=== PATIENT | male | born 1985 | race Caucasian/White ===

== ENCOUNTER 2016-10-05 14:23 | Inpatient (IN) | payer BC ==
--- NOTE | ~2016-10-05 | PN ---
Unit #: [id number] #: [id number] Patient: TIFFANI LARSEN [id number] [facility] [address] [place] [address] [id number] MR#: [id number] NAME: TIFFANI LARSEN ROOM: [facility] Age: 31 Sex: M Admission Date: 10/05/2016 : 1985 Attending Physician: Rashid Lay M.D. Admitting Physician: Rashid Lay M.D. Primary Care Physician: Generic Doctor Not In System [facility] PROGRESS NOTES DATE 10/07/2016 DISCUSSION Tiffani Larsen is a 31-year-old male, seen on 10/07/2016. The patient interviewed, chart reviewed, and obtained information from the nursing staff. The patient reports that he was not able to get his Luvox, feeling anxious and nervous, but overall making progress, compliant and cooperative. The patient's vital signs, 98.1, 101, 197/92. REVIEW OF SYSTEMS Complete review of systems unremarkable. MENTAL STATUS EXAMINATION General appearance: Patient dressed casually. Attention span and concentration, fair. Oriented in place and person. Mood and affect, labile. Speech, monotone. Thought process, concrete. The patient denied any thoughts of harming self or others. Recent and remote memory, poor. Insight and judgment, poor. DIAGNOSES 1. Alcohol use disorder, severe. 2. Major depressive disorder, recurrent, severe. ASSESSMENT/PLAN Advised to continue with the current medication and therapeutic protocol, and if needed consider further adjustment of medication. Continue with the detox protocol. Dictated by... Jennifer Guevara/john TD: 10/09/2016 06:16 JOB #: [id number] Unit #: [id number] #: [id number] Patient: TIFFANI LARSEN PROGRESS NOTES Page 1 of 1 X Rashid Lay MD PROGRESS NOTE
--- NOTE | ~2016-10-05 | PA ---
Unit #: [id number] #: [id number] Patient: TIFFANI LARSEN [id number] [facility] [address] [place] [address] [id number] I MR#: [id number] NAME: TIFFANI LARSEN ROOM: 84 Age: 31 Sex: M Admission Date: 10/05/2016 : 1985 Date of Assessment: 10/06/2016 Attending Physician: Rashid Lay M.D. Admitting Physician: Rashid Lay M.D. Primary Care Physician: Generic Doctor Not In System PSYCHIATRIC ASSESSMENT INFORMANTS The patient's reliability, fair; chart reliability, good. CHIEF COMPLAINT Alcohol abuse. HISTORY OF PRESENT ILLNESS Mr. Tiffani Larsen is a 31-year-old male, presented with the above-mentioned complaint. The patient seeking detox from alcohol. The patient has a history of previous treatment in 2011 and 2007 for DUI, lives with sister. The patient reported he wanted to stop drinking and seeking treatment for detox. The patient reported limited periods of sobriety. The patient reported good family support. The patient denied any suicidal or homicidal ideation. Denied any psychotic symptom. The patient carries a diagnosis of alcohol disorder, major depressive disorder, has an outpatient provider from [place]. The patient reported using alcohol since age 22, longest period of sobriety 6 months, last period of sobriety 3 weeks ago. The patient reported history of blackout and withdrawal symptom, but no history of any HIV, hepatitis, or any IV drug use. The patient is complaining of withdrawal symptoms such as abdominal cramping, depressed mood, headache, irritability, nervousness, poor appetite, poor concentration, restlessness, sleep problem, and tremor. PAST PSYCHIATRIC HISTORY Remarkable for history of previous treatment for DUI as mentioned. FAMILY HISTORY AND SOCIAL HISTORY The patient has a good support system. No history of abuse. No legal charges. MEDICAL HISTORY Remarkable for history of hypertension. Musculoskeletal; muscle strength and tone, no atrophy or abnormal movement. Gait normal. MEDICATION HISTORY The patient is currently on Luvox 200 mg at bedtime, Lamictal 100 mg at bedtime, lisinopril 20 mg at bedtime, hydrochlorothiazide 12.5 mg at bedtime. ALLERGIES No known drug allergies. SUBSTANCE ABUSE HISTORY Unit #: [id number] #: [id number] Patient: TIFFANI LARSEN Please see above. REVIEW OF SYSTEMS HEENT: Eyes, clear. Ears, nose, mouth, and throat; clear. CARDIOVASCULAR: Unremarkable. RESPIRATORY: Unremarkable. GI: Unremarkable. : Unremarkable. SKIN: Unremarkable. LYMPH NODE: Unremarkable. NEUROLOGIC: Unremarkable. ENDOCRINE: Unremarkable. HEMATOLOGIC: Unremarkable. ALLERGIC/IMMUNOLOGIC: Unremarkable. MUSCULOSKELETAL: Muscle strength and tone, no atrophy or abnormal movement. Gait normal. MENTAL STATUS EXAMINATION CONSTITUTIONAL: Measurement of vital signs; temperature 97.7, pulse 78, respirations 22, blood pressure 189/115. Height 5 feet and weight 225 pounds. GENERAL APPEARANCE: The patient dressed casually. The patient did not show any facial deformity. MUSCULOSKELETAL: Please see above. PSYCHIATRIC EXAMINATION Description of speech; regular rate. Description of thought process, goal directed. Description of association, intact. Description of abnormal psychotic thinking; the patient denied any hallucination or delusions, but depressed mood, substance abuse. Description of the patient's judgment; concerning everyday activity, poor. Social situation, poor. Concerning psychiatric condition, poor. Complete mental status examination; oriented in time, place, and person. Recent and remote memory, fair. Attention span and concentration, fair. Language, able to name object and repeat phrases. Fund of knowledge, aware of current event and passive vocabulary intact. Mood and affect, sad and dysphoric. Insight and judgment, fair to poor. ASSETS AND LIABILITIES Assets; the patient is articulate, able to take care of his ADL. Liability; history of depression, substance abuse. ADMITTING DIAGNOSES Psychiatric: Alcohol use disorder, severe, F10.20; major depressive disorder, recurrent, severe, F33.2. Secondary diagnosis: Deferred. Medical diagnoses: Hypertension and obesity. Stressors: Psychosocial stressors. PSYCHIATRIC PLAN AND TREATMENT GOAL 1. Advised to admit the patient on the inpatient unit. Provide safe, supportive, and structured environment. 2. Ordered labs; CBC, CMP, UA, and UDS. 3. Detox protocol, detox monitoring, SP1 precaution. Unit #: [id number] #: [id number] Patient: TIFFANI LARSEN 4. Advised to resume home medication. If needed, consider further adjustment of medication. 5. The patient to attend all the programing with group therapy, individual therapy, family session, chemical dependency group. 6. Treatment goal to attain euthymic mood, gain insight into his problem, learn coping skill, complete detox. DISCHARGE PLAN Plan to stabilize the patient and consider followup in outpatient program. ESTIMATED LENGTH OF STAY 3 to 5 days. Dictated by... Jennifer Guevara/jennifer TD: 10/07/2016 00:01 JOB #: [id number] PSYCHIATRIC ASSESSMENT Page 1 of 1 X Rashid Lay MD X PSYCHIATRIC ASSESSMENT
--- NOTE | ~2016-10-05 | DS ---
Unit #: [id number] #: [id number] Patient: TIFFANI CARRASCO [id number] [facility] [address] [place] [address] [id number] MR#: [id number] NAME: TIFFANI CARRASCO ROOM: [facility] Age: 31 Sex: M Admission Date: 10/05/2016 : 1985 Discharge Date: 10/08/2016 Attending Physician: Rashid Lay M.D. Primary Care Physician: Generic Doctor Not In System DISCHARGE SUMMARY REASON FOR ADMISSION Detox. DIAGNOSTIC STUDIES LABORATORY RESULTS: Urine drug screen positive for benzodiazepine. HOSPITAL COURSE The patient was admitted to inpatient unit on 10/05/2016 and discharged on 10/08/2016. The patient was treated on the inpatient unit with expressive therapy, chemical dependency group, psychotherapy, detox protocol, and detox monitoring. The patient responded well with the above modalities of treatment. Subsequently, the patient was discharged with a plan to follow up in outpatient program. DISCHARGE MEDICATIONS None. DISCHARGE DIAGNOSES Psychiatric: 1. Alcohol use disorder, severe, F10.20. 2. Major depressive disorder, recurrent, severe, F33.2. Secondary diagnosis: Deferred. Medical diagnosis: None. Stressors: Psychosocial stressors. DISCHARGE INSTRUCTIONS The patient is to follow up in outpatient clinic as per manager social work. CONDITION ON DISCHARGE The patient was pleasant and cooperative. Denied any psychotic symptom or any suicidal ideation. PROGNOSIS Guarded. DIET AND ACTIVITY As tolerated. Dictated by... Rashid Lay M.D. Unit #: [id number] #: [id number] Patient: TIFFANI CARRASCO SZC/modl TD: 10/08/2016 23:35 JOB #: [id number] DISCHARGE SUMMARY Page 1 of 1 X Rashid Lay MD X DISCHARGE SUMMARY
--- NOTE | ~2016-10-05 | HP ---
Unit #: [id number] #: [id number] Patient: TIFFANI CARRASCO [id number] [place] [address] [id number] I MR#: [id number] NAME: TIFFANI CARRASCO ROOM: [facility] Age: 31 Sex: M Admission Date: 10/05/2016 : 1985 Attending Physician: Rashid Lay M.D. Admitting Physician: Rashid Lay M.D. Primary Care Physician: Generic Doctor Not In System HISTORY AND PHYSICAL HISTORY OF PRESENT ILLNESS The patient is a 31-year-old male admitted to [facility] on 10/05/2016 for detox from alcohol. PAST MEDICAL HISTORY Hypertension. PAST SURGICAL HISTORY 1. Cyst removal. 2. Oral surgery. SOCIAL HISTORY He is employed with [employer]. He lives with his mother. He drinks quart of alcohol per day. FAMILY MEDICAL HISTORY Noncontributory. ALLERGIES No known drug allergies. CURRENT MEDICATIONS Luvox, Lamictal, lisinopril, and HCTZ. REVIEW OF SYSTEMS CONSTITUTIONAL: No fever or chills. HEENT: Denies any sore throat, ear pain or runny nose. CARDIOVASCULAR: Denies chest pain, irregular heart rhythm or palpitations. CHEST: Denies shortness of breath or cough. No hemoptysis. GASTROINTESTINAL: Denies nausea, vomiting, diarrhea or chronic constipation. ENDOCRINE: Denies history of increased thirst or urination. No recent significant weight loss or gain. GENITOURINARY: Denies dysuria, frequency, or hematuria. SKIN: Denies any rashes. HEMATOLOGIC: Denies history of increased bleeding or bruising. MUSCULOSKELETAL: Denies any hot, swollen joints. No generalized muscle pain. NEUROLOGIC: Denies problems with vision or speech. No frequent, severe headaches. No numbness, tingling or weakness in any extremities. Denies loss of bladder or bowel control. PHYSICAL EXAMINATION Unit #: [id number] #: [id number] Patient: TIFFANI CARRASCO GENERAL: He is awake, alert, and oriented in no acute distress. VITAL SIGNS: Temperature 98.1, heart rate 101, respirations 22, blood pressure 197/92. SKIN: Warm and dry without rash or lesion. HEENT: Normocephalic. TMs not viewed. Oral and nasal passages clear. Conjunctivae clear. PERRLA. EOMs intact. NECK: Supple without lymphadenopathy or thyromegaly. HEART: Regular rate and rhythm without murmur. LUNGS: Clear. ABDOMEN: Soft, nontender. : Not done. EXTREMITIES: No evidence of cyanosis, clubbing or edema. Moves all without focal deficit. NEUROLOGICAL: Grossly within normal limits. Cranial Nerves: II: Visual ha are intact. III, IV AND : Extraocular movements are intact. Pupils are equal, round and reactive to light. V: Facial sensation is grossly normal. VII: Facial movements and expression are normal. VIII: Auditory acuity grossly intact. IX, X: Uvula is midline. Phonation is normal. XI: Patient shrugs shoulders and turns head normally. XII: Tongue protrudes in the midline. Sensory and Motor Function: Sensory and motor sensation is grossly normal. Motor: moves all extremities well. IMPRESSION 1. Psychiatric admission. 2. Alcohol abuse. 3. Hypertension. RECOMMENDATIONS PSYCHIATRIC: Per psychiatrist. MEDICAL: No contraindication to participate in this facility activities. MEDICAL PROGNOSIS Good. MEDICAL CONDITION Stable. Dictated by... Raulito Cox/cj TD: 10/06/2016 15:04 JOB #: [id number] Unit #: [id number] #: [id number] Patient: TIFFANI CARRASCO HISTORY AND PHYSICAL Page 1 of 1 X PATTI FLORES APRN HISTORY AND PHYSICAL
[2016-10-08 10:05] LABS: URINE APPEARANCE CLEAR; URINE BILIRUBIN NEG (NEG); URINE BLOOD NEG (NEG); URINE COLOR DK YELLOW; URINE GLUCOSE NEG (NEG); URINE KETONE NEG (NEG); URINE LEUKOCYTE ESTERASE NEG (NEG); URINE NITRATE NEG (NEG); URINE PROTEIN 1+ (NEG); URINE SPECIFIC GRAVITY 1.027 (1.003-1.035); URINE UROBILINOGEN 0.2 MG/DL (NEG)
[2016-10-08 10:08] LABS: URBCS1 AUWI 0-2 /[HPF] (0-2); URINE BACTERIA AUWI NEG (NEGATIVE); URINE SQUAMOUS EPITHELIAL CELL NONE SEEN /[HPF]; UWBCS1 AUWI 0-2 (0-5)
[2016-10-08 10:40] LABS: CULTURE INDICATED? NO
[2016-10-08 11:20] LABS: AMPHETAMINE NEG (NEG); BARBITURATES NEG (NEG); BENZODIAZEPINES POS (NEG); COCAINE NEG (NEG); MARIJUANA NEG (NEG); OPIATES NEG (NEG); TRICYCLIC ANTIDEPRESSANTS NEG (NEG); U METHADONE NEG (NEG)
== END 2016-10-08 10:05 | DRG 897 ==
LOC: P1E 21:49
PROVIDERS: Psychiatry & Neurology Psychiatry
PROC: HZ2ZZZZ Detoxification Services for Substance Abuse Treatment (ICD-10-PCS; principal; 2016-10-05)
DX: F10.20 Alcohol dependence, uncomplicated (principal); F33.2 Major depressive disorder, recurrent severe without psychotic features; I10 Essential (primary) hypertension; E66.9 Obesity, unspecified
CPT/HCPCS: 80307; 81003